=== PATIENT | male | born 1980 | race Caucasian/White ===

== ENCOUNTER 2018-03-03 03:34 | Emergency (ER) | payer SELFPAY ==
[2018-03-03] MEDS ORDERED: IPRATROPIUM/ALBUTEROL 3 ML NEB INH STA (03:53)
[2018-03-03] MEDS ORDERED: DEXAMETHASONE 10 MG/ML VIAL PO STA (03:53)
--- NOTE | 2018-03-03 03:57 | ED Physician Documentation ---
PD HPI DYSPNEA - Stated complaint Stated Complaint: CHEST CONGESTION - Chief complaint Chief Complaint: Resp - History obtained from History obtained from: Patient - History of Present Illness Timing - onset: How many days ago (5) Timing - details: Still present Worsened by: Coughing Associated symptoms: Cough. No: Fever Similar symptoms before: Has not had sx before - Additional information Additional information: The patient is a 37-year-old male who is visiting from [facility], and presents with cough that has been progressing over the past 5 days, with increasing shortness of breath. His cough is nonproductive. He denies fever or sore throat. He reports mild headache. Denies abdominal pain or vomiting. He denies history of similar symptoms in the past. He does smoke cigarettes. Review of Systems Constitutional: denies: Fever Ears: denies: Ear pain Nose: reports: Congestion Throat: denies: Sore throat Cardiac: denies: Chest pain / pressure Respiratory: reports: Dyspnea, Cough GI: denies: Abdominal Pain, Nausea, Vomiting, Diarrhea : denies: Dysuria Skin: denies: Rash Musculoskeletal: denies: Extremity pain, Extremity swelling Neurologic: reports: Headache (mild) PD PAST MEDICAL HISTORY - Past Medical History Past Medical History: No Respiratory: None Endocrine/Autoimmune: None - Past Surgical History Past Surgical History: Yes Ortho: Knee replacement - Present Medications Home Medications: Ambulatory Orders Medication Instructions Recorded Confirmed No Known Home Medications [No 03/03/18 03/03/18 Known Home Medications] - Allergies Allergies/Adverse Reactions: Allergies Allergy/AdvReac Type Severity Reaction Status Date / Time No Known Drug Allergies Allergy Verified 03/03/18 03:44 - Social History Does the pt smoke?: Yes Smoking Status: Current every day smoker Does the pt drink ETOH?: Yes Does the pt have substance abuse?: No - Immunizations Immunizations are current?: No - POLST Patient has POLST: No PD ED PE NORMAL - Vitals Vital signs reviewed: Yes (Tachycardic) - General General: Alert and oriented X 3, Well developed/nourished - HEENT HEENT: Atraumatic, EOMI, Ears normal, Pharynx benign - Neck Neck: Supple, no meningeal sign, No adenopathy, No JVD - Cardiac Cardiac: No murmur, Other (Rapid rate, regular rhythm.) - Respiratory Respiratory: Other (Diffuse expiratory wheezes) - Abdomen Abdomen: Soft, Non tender - Back Back: No CVA TTP - Derm Derm: No rash - Extremities Extremities: No edema, No calf tenderness / cord - Neuro Neuro: Alert and oriented X 3, No motor deficit, Normal speech Results - Vitals Vitals: Vital Signs - 24 hr 03/03/18 03/03/18 03/03/18 03:38 04:00 04:10 Temperature 36.8 C 36.3 C L Heart Rate 138 H 108 H 99 Respiratory 20 16 18 Rate Blood Pressure 139/108 H 140/87 H O2 Saturation 97 98 Oxygen O2 Source Room air PD MEDICAL DECISION MAKING - ED course ED course: The patient presented with wheezing, that was most consistent with asthmatic bronchitis, although environmental allergies remain a possible precipitating cause. I doubt pneumonia or pulmonary embolus. A chest x-ray had been ordered , but the patient is no from the emergency department before the chest x-ray was performed. Treatment in the emergency department included administration of DuoNeb nebulizer and oral dexamethasone, 10 mg. The respiratory therapist tells me the patient's wheezing improved after the nebulizer treatment. During that time I was occupied with a trauma patient, and the patient left the emergency department before I reexamined him following the nebulizer treatment. As he was leaving, he reportedly told the community health worker that he was going to go outside to smoke, and was not willing to wait for further evaluation. Departure - Departure Disposition: ED Elope Clinical Impression: Asthmatic bronchitis Qualifiers: Asthma severity: unspecified severity Asthma persistence: unspecified Asthma complication type: uncomplicated Qualified Code(s): J45.909 - Unspecified asthma , uncomplicated Discharge Date/Time: 03/03/18 04:39
[2018-03-03 04:45] VITALS: BP 140/87
== END 2018-03-03 04:39 | disposition left against medical advice (07) ==
LOC: ED 03:34
DX: J45.909 Unspecified asthma, uncomplicated (principal); F17.200 Nicotine dependence, unspecified, uncomplicated
CPT/HCPCS: 94640; 99283